=== PATIENT | male | born 1940 | race Caucasian/White ===

== ENCOUNTER 2016-05-19 05:05 | Inpatient (IN) | payer OTHER ==
[2016-04-27 08:41] LABS: URINE BILIRUBIN NEGATIVE (Negative); URINE BLOOD NEGATIVE (Negative); URINE COLOR YELLOW; URINE GLUCOSE-RANDOM* NEGATIVE (Negative); URINE KETONES NEGATIVE (Negative); URINE LEUKOCYTES-REFLEX NEGATIVE (Negative); URINE PROTEIN (DIPSTICK) NEGATIVE (Negative); URINE SPECIFIC GRAVITY 1.025 (1.003-1.035); URINE UROBILINOGEN 0.2 E.U./dl (0.2-1.0)
[2016-04-27 09:10] LABS: HEMATOCRIT 35.8 % (42.0-52.0); MCH 29.5 pg (26.0-34.0); MCHC 33.6 % (28.0-37.0); MCV 87.7 fL (80.0-100.0); RBC 4.09 mil/uL (4.50-6.00); RDW 13.1 % (10.5-14.5); WBC 6.1 thou/uL (4.0-11.0)
[2016-04-27 09:18] LABS: ALBUMIN 3.7 g/dL (3.4-5.0); CALCIUM 8.6 mg/dL (8.5-10.1); CREATININE 1.4 mg/dL (0.6-1.3); POTASSIUM 4.1 mmol/L (3.5-5.1)
[2016-04-27 09:23] LABS: PROTIME 10.6 Seconds (9.3-11.4)
[2016-05-19] VITALS (9 sets, daily range): BP systolic 118–126; BP diastolic 56–72
[~2016-05-19] VITALS: Ht 177.8 cm; Wt 104.3 kg
--- NOTE | ~2016-05-19 | D ---
[facility] [place] [place] [address] DISCHARGE SUMMARY Name: JOSE DE JESUS SYLVESTER Room #: 541-P [facility] IN M.R.#: [id number] Admission: 05/19/16 Attend Phys: Kip Newman MD Discharge: 05/20/16 Date of : 44 Report #: [id number] THIS REPORT FOR: //name// CC: Kip Martinez DATE OF SERVICE: 05/20/2016 ADMISSION DIAGNOSIS: Left knee osteoarthritis. DISCHARGE DIAGNOSIS: Left knee osteoarthritis. PROCEDURE: The patient underwent left total knee arthroplasty and reduction. CONSULTATIONS: Include physical therapy. HISTORY OF PRESENT ILLNESS: The patient is a 75-year-old gentleman with severe left knee osteoarthritis who failed conservative treatment for this and elected for left total knee arthroplasty. HOSPITAL COURSE: He was admitted and underwent the above named procedure, tolerated this procedure well and went to the floor postoperatively. Postoperative course was relatively benign. On postoperative day #1, he was cleared to by physical therapy. His hemoglobin was 10.2 and stable. Pain was controlled with p.o. pain medication. DISCHARGE DISPOSITION: Home. INSTRUCTIONS: He is to follow up with me in 2 weeks. He is to be on Aspirin 325 mg p.o. b.i.d. for DVT prophylaxis, Percocet 5 mg q. 4 hours p.r.n. pain as well as MS Contin 15 mg p.o. b.i.d. for pain. If he has any questions or concerns, he is to call or come to the Emergency Room for evaluation. He is to have outpatient therapy at [facility]. <ELECTRONICALLY SIGNED> By: Kip Newman MD 05/22/16 1255 [id number] [id number] Kip Newman MD /nt
--- NOTE | ~2016-05-19 | H ---
[facility] [address] [address] HISTORY AND PHYSICAL Name: JOSE DE JESUS SYLVESTER KYLEIGH Room #: 541-P DIS IN M.R.#: [id number] Admission: 05/19/16 Attend Phys: Kip Newman MD Discharge: 05/20/16 Date of : 44 Report #: [id number] THIS REPORT FOR: //name// For History and Physical, please see office documentation/handwritten note in the patient's medical record. <ELECTRONICALLY SIGNED> By: Kip Newman MD 05/22/16 1255 1549 Kip Newman MD /
--- NOTE | ~2016-05-19 | O ---
[facility] [place] [address] [place] [address] OPERATIVE REPORT Name: JOSE DE JESUS SYLVESTER Room #: 541-P [facility] IN M.R.#: [id number] Admission: 05/19/16 Attend Phys: Kip Newman MD Discharge: 05/20/16 Date of : 44 Report #: [id number] THIS REPORT FOR: //name// CC: Kip Martinez DATE OF SERVICE: 05/19/2016 PREOPERATIVE DIAGNOSIS: Left knee osteoarthritis with femoral malunion. POSTOPERATIVE DIAGNOSIS: Left knee osteoarthritis with femoral malunion. PROCEDURE: Left total knee arthroplasty. SURGEON: Kip Newman MD. GRADES 9 12 TUTOR: Sohail Fragoso MD and Alexia Alexander PA-C. ANESTHESIA: LMA with an adductor canal block. IMPLANTS: [employer] size 7, [employer] cobalt chrome posterior stabilized femur, size 6 tibia, size 35 patella, and a size 11 polyethylene. TOURNIQUET TIME: 62 minutes. ESTIMATED BLOOD LOSS: 50 mL. COMPLICATIONS: None. SPECIMENS: None. CONDITION UPON LEAVING THE OPERATING ROOM: Stable. INDICATION FOR PROCEDURE: The patient is a 75-year-old gentleman with left knee osteoarthritis. He had failed conservative treatment and elected for left total knee arthroplasty. He previously has had a left femur fracture with a malunion, and because of this, it required patient specific technology. We used [employer] technology from [employer] for this case. DESCRIPTION OF PROCEDURE: Risks, benefits, alternatives, and complications were discussed in detail with the patient, including but not limited to risk of anesthesia, risk of damage to nerves, arteries, and blood vessels, risk for infection and bleeding, risk for continued knee pain, and need for reoperation. An informed consent was obtained from the patient. The left knee was appropriately marked in the preoperative holding area. IV Ancef was given for preoperative antibiotics. An adductor canal block was placed by anesthesia. He [facility] [address] [place] [address] OPERATIVE REPORT Name: JOSE DE JESUS SYLVESTER Room #: 541-P DIS IN M.R.#: [id number] Admission: 05/19/16 Attend Phys: Kip Newman MD Discharge: 05/20/16 Date of : 44 Report #: [id number] was brought to the operating room and placed in the supine position on the operating room table. LMA anesthesia was induced without complication. Tourniquet was placed on the left thigh. Left lower extremity was prepped and draped in normal sterile fashion. Timeout was performed, properly identifying the patient and procedure, as well as the instrumentation and implants. All in the operating room were in agreement. The left lower extremity was exsanguinated, tourniquet was inflated. Tourniquet time was 62 minutes. He had a previous medial parapatellar arthrotomy, and this scar was used. An incision was made through the skin with a #10 blade, and dissection was taken down sharply to the fascia, and deep flaps were developed medially and laterally. A fresh #10 blade was used to make a medial parapatellar arthrotomy, and there was extensive tricompartmental osteoarthritic change. Anterior horns of the meniscus were removed sharply. The ACL and PCL were removed sharply. The patient-specific bone block for the femur was then placed on the end of the femur, which fit very nicely. This was pinned per the standard technique and the distal femoral resection was made. The size 7 4-in-1 cutting block was then placed on the femur. Anterior, posterior, and chamfer cuts were made. After this, the knee was hyperflexed, and the remainder of the menisci removed with Bovie cautery. The tibial resection block was pinned in place and tibial resection was made. Medial osteophytes were removed from the tibia. After this flexion and extension gaps were checked and found to be tight, medially both in flexion and extension. Lamina crime scene investigator was then used to perform medial release using the pie-crust technique. This balanced the knee well. A size 6 tibial trial was placed, size 7 femoral trial was placed, and the box cut was made. The post was placed and then a size 9 polyethylene was placed. Knee was taken through range of motion and found to be somewhat lax in flexion and extension, but equal medially and laterally. After this, a size 11 was trialed and found to have a better fit. A 9 mm was taken off the posterior surface of the patella and size 35 patellar trial button was placed. The knee was taken through range of motion, found to be stable, and found to have good patellar tracking. Trial components were removed, and bony ends were thoroughly irrigated with normal saline. A final size 6 tibia, size 7 Legion cobalt chrome posterior stabilized femur and a size 35 patella were cemented in place using standard cementation techniques. After the cement cured, the tourniquet was deflated. Hemostasis was obtained with Bovie cautery. A final size 11 polyethylene was placed. The knee was thoroughly irrigated with normal saline. The fascia was closed with 0 Vicryl, skin was closed with 2-0 Vicryl, skin courtney, Aquacel dressing, and JAZZMINE hose were applied. The patient tolerated this procedure well and went to the recovery room under the care of anesthesia postoperatively. <ELECTRONICALLY SIGNED> By: Kip Newman MD 05/22/16 1255 0935 [id number] Kip Newman MD /merry
[~2016-05-19 05:05] MED LIST: ACTOS15 MG PO; AMLODIPINE BESYL5 MG PO; ASPIR 8181 MG PO; CHLORTHALIDONE25 MG PO; GLUCOPHAGE XR500 MG PO; JANUVIA 50 MG T50 M1 PO; LIPITOR 20 MG T20 M1 PO; LISINOPRIL40 MG PO; SIMVASTATIN40 MG PO; TRAZODONE HCL50 MG PO; TRILIPIX45 MG PO
[2016-05-20 04:37] VITALS: BP 123/63
[2016-05-20 05:01] LABS: HEMOGLOBIN 10.2 gm/dL (14.0-18.0); MCH 29.9 pg (26.0-34.0); MCHC 34.1 % (28.0-37.0); MCV 87.6 fL (80.0-100.0); RBC 3.43 mil/uL (4.50-6.00); RDW 13.4 % (10.5-14.5); WBC 9.5 thou/uL (4.0-11.0)
[2016-05-20 07:46] VITALS: BP 130/69
[2016-05-20] MEDS ORDERED: MS CONTIN15 MG PO (12:40)
[2016-05-20] MEDS ORDERED: PERCOCET PO (12:40)
[2016-05-20] MEDS ORDERED: CVS BUFFERED A325 MG PO (12:40)
[2016-05-20 13:36] VITALS: BP 130/69
[2016-05-20 14:24] VITALS: BP 130/69
== END 2016-05-20 18:30 | disposition home or self-care (01) | DRG 470 ==
LOC: 5S 05:05 → TBA 05:05 → 5S 10:43 → PRE 10:54 → 5S 05-20 18:30
PROVIDERS: Orthopaedic Surgery; Orthopaedic Surgery Sports Medicine
PROC: 0SRD0J9 Replacement of Left Knee Joint with Synthetic Substitute, Cemented, Open Approach (ICD-10-PCS; principal; 2016-05-19)
DX: M17.12 Unilateral primary osteoarthritis, left knee (principal); G47.30 Sleep apnea, unspecified; M47.22 Other spondylosis with radiculopathy, cervical region; M16.12 Unilateral primary osteoarthritis, left hip; E66.9 Obesity, unspecified; E11.9 Type 2 diabetes mellitus without complications; I10 Essential (primary) hypertension; E78.5 Hyperlipidemia, unspecified; Z82.49 Family history of ischemic heart disease and other diseases of the circulatory system; Z87.891 Personal history of nicotine dependence; Z98.890 Other specified postprocedural states; Z68.33 Body mass index [BMI] 33.0-33.9, adult
CPT/HCPCS: 10785; 50010; 50101; 50415; 50612; 50954; 51130; 51225; 51412; 51771; 53000; 53078; 53363; 56528; 57095; 62110; 62900; 70005

== ENCOUNTER → 2018-07-24 | Outpatient (CLI) | payer OTHER ==
[~2018-07-24] MED LIST changes: +CVS BUFFERED A325 MG PO; +MS CONTIN15 MG PO; +PERCOCET PO
--- NOTE | 2018-07-27 08:23 | SLE ---
[facility] [place] [address] [place] [address] POLYSOMNOGRAPHY STUDY Name: JOSE DE JESUS SYLVESTER [id number] Admission: 07/24/18 ������������������ Attend Phys: Gilmer Flores MD Discharge: ������������������ Date of : 44 Report #: [id number] THIS REPORT FOR: //name// CC: Gilmer García DATE OF SERVICE: 07/24/2018 ATTENDING PHYSICIAN: Dr. Kang García. The patient is a 77-year-old who weighs 235 pounds with a BMI of 33.7. The patient's [place] score was 2. The patient underwent split night study at [facility]. During the night of study, the patient spent 455 minutes in bed and slept for 279 minutes with a sleep efficiency of 61%, which was low. Sleep latency was 19.8 minutes with a REM latency of 237 minutes. Overall, sleep architecture showed increased stage 1 and stage 2 sleep, absent N3 sleep and reduced REM sleep, which was 11% of the total sleep time. During the initial diagnostic portion of the study, the patient slept for 104 minutes. During that time, there were 112 obstructive apneas, 8 mixed apneas and 35 central apneas. The patient's apnea-hypopnea index was 89 per hour. REM index was not available as REM sleep was not seen during the diagnostic portion. The patient's supine index was 93 per hour. EKG monitoring revealed an average heart rate of 59 beats per minute with a maximum of 71 beats per minute. No sustained arrhythmias observed. PLMS were seen at an index of 32 per hour, but only 1 per hour caused EEG arousals. PLM significantly resolved while patient was on CPAP during the latter part of the night. Nocturnal oximetry study during the diagnostic portion revealed an average oxygen saturation of 95% with a lowest of 83%. Five minutes were spent at an oxygen saturation less than 89%. The patient met the criteria for CPAP initiation. It was started at 5 cm water and titrated up to 9 cm water. At the final pressure, the patient slept for 52 minutes. The patient had 6 minutes of REM sleep. The patient had supine sleep as well. The patient's AHI was reduced to only 1.2 per hour and oxygen saturation remained above 93%. IMPRESSION: [facility] [address] [place] [address] POLYSOMNOGRAPHY STUDY Name: JOSE DE JESUS SYLVESTER KYLEIGH [id number] Admission: 07/24/18 ������������������ Attend Phys: Gilmer Flores MD Discharge: ������������������ Date of : 44 Report #: [id number] 1. Severe sleep apnea-hypopnea syndrome at an AHI of 89 per hour. 2. Mild nocturnal hypoxia secondary to obstructive sleep apnea, but resolved with CPAP. 3. Moderate PLMS during the diagnostic portion with no EEG arousals. PLMS completely resolved while the patient was on CPAP and as such does not need to be treated. RECOMMENDATIONS: 1. CPAP at 9 cm water completely eliminated the patient's sleep apnea and should be used on a nightly basis. 2. Follow up in 4-6 weeks to assess compliance with CPAP and to document clinical improvement. 3. Weight loss was strongly advised. 4. Avoid GAS METER CHECKER depressants. 5. Cautioned regarding driving until symptoms of sleep apnea resolve with the use of CPAP. ��������������������������������������������� <ELECTRONICALLY SIGNED> ���������������������������������������� By: Gilmer Flores MD ��������������������������������������������� 07/27/18 0823 2303 2315 Gilmer Flores MD /nt
== END ==
LOC: SLEEPLAB 11:48
DX: G47.33 Obstructive sleep apnea (adult) (pediatric) (principal); R09.02 Hypoxemia; G47.61 Periodic limb movement disorder

== ENCOUNTER → 2020-02-06 | Outpatient (CLI) | payer OTHER | LOC: SJCVC 10:11 | PROVIDERS: ATTEND Internal Medicine | DX: I25.119 Atherosclerotic heart disease of native coronary artery with unspecified angina pectoris (principal); E78.2 Mixed hyperlipidemia; N18.3 Chronic kidney disease, stage 3 (moderate); G47.33 Obstructive sleep apnea (adult) (pediatric); Z99.89 Dependence on other enabling machines and devices ==

== ENCOUNTER → 2020-05-16 | Outpatient (CLI) | payer OTHER | LOC: SJCVCIMAG 08:51 | PROVIDERS: ATTEND Internal Medicine | DX: I35.1 Nonrheumatic aortic (valve) insufficiency (principal); I25.119 Atherosclerotic heart disease of native coronary artery with unspecified angina pectoris; I47.1 Supraventricular tachycardia; E78.2 Mixed hyperlipidemia; I12.9 Hypertensive chronic kidney disease with stage 1 through stage 4 chronic kidney disease, or unspecified chronic kidney disease; N18.30 Chronic kidney disease, stage 3 unspecified; G47.33 Obstructive sleep apnea (adult) (pediatric); E78.00 Pure hypercholesterolemia, unspecified; E66.9 Obesity, unspecified; Z99.89 Dependence on other enabling machines and devices; Z79.82 Long term (current) use of aspirin; Z79.899 Other long term (current) drug therapy; Z87.891 Personal history of nicotine dependence ==

== ENCOUNTER → 2020-08-09 | Outpatient (CLI) | payer OTHER | LOC: SJCVCIMAG 08-08 16:24 | PROVIDERS: ATTEND Internal Medicine | DX: I65.23 Occlusion and stenosis of bilateral carotid arteries (principal); I25.10 Atherosclerotic heart disease of native coronary artery without angina pectoris; I10 Essential (primary) hypertension; E11.9 Type 2 diabetes mellitus without complications; E78.2 Mixed hyperlipidemia; G47.33 Obstructive sleep apnea (adult) (pediatric); Z79.82 Long term (current) use of aspirin; Z79.899 Other long term (current) drug therapy; Z72.89 Other problems related to lifestyle; Z87.891 Personal history of nicotine dependence ==

== ENCOUNTER → 2020-11-15 | Outpatient (CLI) | payer OTHER | LOC: SJCVC 09:57 | PROVIDERS: ATTEND Internal Medicine | DX: I25.119 Atherosclerotic heart disease of native coronary artery with unspecified angina pectoris (principal); E78.2 Mixed hyperlipidemia; I65.23 Occlusion and stenosis of bilateral carotid arteries; N18.30 Chronic kidney disease, stage 3 unspecified; G47.33 Obstructive sleep apnea (adult) (pediatric); E11.22 Type 2 diabetes mellitus with diabetic chronic kidney disease; I12.9 Hypertensive chronic kidney disease with stage 1 through stage 4 chronic kidney disease, or unspecified chronic kidney disease; E78.00 Pure hypercholesterolemia, unspecified; G43.909 Migraine, unspecified, not intractable, without status migrainosus; Z99.89 Dependence on other enabling machines and devices; Z79.82 Long term (current) use of aspirin; Z79.899 Other long term (current) drug therapy; Z87.891 Personal history of nicotine dependence; Z72.89 Other problems related to lifestyle ==

== ENCOUNTER → 2021-05-22 | Outpatient (CLI) | payer OTHER | LOC: SJCVCIMAG 09:55 | PROVIDERS: ATTEND Internal Medicine | DX: R94.31 Abnormal electrocardiogram [ECG] [EKG] (principal); I65.23 Occlusion and stenosis of bilateral carotid arteries; I25.119 Atherosclerotic heart disease of native coronary artery with unspecified angina pectoris; E78.5 Hyperlipidemia, unspecified; I12.9 Hypertensive chronic kidney disease with stage 1 through stage 4 chronic kidney disease, or unspecified chronic kidney disease; N18.30 Chronic kidney disease, stage 3 unspecified; E11.22 Type 2 diabetes mellitus with diabetic chronic kidney disease; E78.00 Pure hypercholesterolemia, unspecified; G47.33 Obstructive sleep apnea (adult) (pediatric); Z99.89 Dependence on other enabling machines and devices; Z87.891 Personal history of nicotine dependence; Z72.89 Other problems related to lifestyle; Z79.82 Long term (current) use of aspirin; Z79.899 Other long term (current) drug therapy; Z79.84 Long term (current) use of oral hypoglycemic drugs; Z82.49 Family history of ischemic heart disease and other diseases of the circulatory system ==